=== PATIENT | female | born 1995 | race Caucasian/White ===

== ENCOUNTER 2017-07-10 11:20 | Emergency (ER) | payer BC, OTHER ==
[~2017-07-10] VITALS: Ht 172.7 cm; Wt 80.7 kg
[2017-07-10 11:31] VITALS: Ht 172.7 cm; Wt 80.7 kg
[2017-07-10 16:51] VITALS: BP 120/67
== END 2017-07-10 16:51 | disposition home or self-care (01) ==
LOC: ED 11:20
DX: S22.32XA Fracture of one rib, left side, initial encounter for closed fracture (principal); S63.512A Sprain of carpal joint of left wrist, initial encounter; F41.9 Anxiety disorder, unspecified; V49.9XXA Car occupant (driver) (passenger) injured in unspecified traffic accident, initial encounter; Y93.89 Activity, other specified; Y92.89 Other specified places as the place of occurrence of the external cause; Y99.8 Other external cause status
CPT/HCPCS: 94150